=== PATIENT | male | born 1960 | race Caucasian/White ===

== ENCOUNTER → 2018-03-15 08:09 | Outpatient (CLI) | payer OTHER, SELFPAY ==
[2018-03-15 09:56] LABS: Add Manual Diff / Slide Review NO; Basophils Percent Auto 1.9 % (0-2); Eosinophils Percent Auto 3.2 % (2-4); Hematocrit 43.4 % (41-53); Hemoglobin 15.1 g/dL (13.5-17.5); Lymphocytes Percent Auto 30.5 % (25-40); Mean Corpuscular HGB Conc 34.8 % (30-36); Mean Corpuscular Hemoglobin 30.8 PG (26-34); Mean Corpuscular Volume 88.7 fL (80-100); Monocytes Percent Auto 9.2 % (3-14); Neutrophils Absolute Auto 2800 /uL (3000-5900); Neutrophils Percent Auto 55.2 % (50-75); Platelet Count 257 X10^3/uL (150-400); Red Blood Cell Count 4.89 X10^6/uL (4.5-5.9); Red Cell Distribution Width 12.6 % (11.6-14.8); White Blood Cell Count 5.1 X10^3/uL (4.5-11.0)
[2018-03-15 09:57] LABS: HEMOLYSIS < 15 (0-50)
[2018-03-15 10:11] LABS: Alanine Aminotransferase 43 IU/L (21-72); Albumin 4.4 g/dL (3.5-5.0); Albumin Globulin Ratio 1.4 (1.0-2.8); Alkaline Phosphatase 98 U/L (38-126); Aspartate Aminotransferase 26 IU/L (17-59); Bilirubin Total 0.8 mg/dL (0.2-1.3); Blood Urea Nitrogen 21 mg/dL (9-20); Calcium 9.2 mg/dL (8.4-10.2); Carbon Dioxide 30 mmol/L (22-32); Chloride 100 mmol/L (98-107); Cholesterol 201 mg/dL (140-199); Estimated Glomerular Filt Rate > 60.0 mL/min (>60); Globulin 3.1 g/dL (1.7-4.1); Glucose 98 mg/dL (70-100); HDL Cholesterol 52 mg/dL (40-60); LDL Cholesterol Calculated 128 mg/dL (<100); Potassium 4.2 mmol/L (3.4-5.1); Sodium 141 mmol/L (137-145); Total Protein 7.5 g/dL (6.3-8.2); Triglycerides 106 mg/dL (35-150)
[2018-03-15 10:34] LABS: TSH w/ Reflex to FT4 0.91 uIU/mL (0.47-4.68)
[2018-03-15 11:35] LABS: Prostate Specific Antigen Scrn 0.444 ng/mL (0.1-4.0)
== END ==
PROVIDERS: PCP Family Medicine; Visit Provider Family Medicine
DX: E78.2 Mixed hyperlipidemia (principal); I10 Essential (primary) hypertension
CPT/HCPCS: 36415; 80053; 80061; 84443; 85025; G0103

== ENCOUNTER 2019-01-08 08:31 | Day surgery (SDC) | payer OTHER, SELFPAY ==
[2019-01-08] VITALS (7 sets, daily range): BP systolic 104–135; BP diastolic 70–95; PULSE 66–86; RESP 11–16; TEMP 36.3–37.1; O2SAT 93–97; BMI 25.9
--- NOTE | 2019-01-08 | PATH_ITS ---
[facility] Accession Number: [id number] . 01 Material submitted: . body - POLYP AT 20 . 01 Clinical history: . ENCOUNTER FOR SCREENING FOR MALIGNANT NEOPLASM . 02 Diagnosis: Colon, Polyp At 20, Biopsy: Tubulovillous adenoma. No evidence of malignancy or high-grade dysplasia. [facility] 01/09/2019 1432 Local . 02 Electronically signed: . Kathryn Elena MD, Pathologist NPI- [id number] . 01 Gross description: . POLYP AT 20: Received in formalin is 1 fragment(s) of ayala, soft tissue measuring 0.6 x 0.5 x 0.5 cm which is bisected and submitted entirely in 1 cassette(s) /[facility] [place] 01/08/20192009 Local . 02 Pathologist provided ICD-10: D12.6 . 02 CPT . 783525 Performed at: 01 [facility] [address] [place] [address] [id number] MD Ayaz Woo MD Phone: [phone] Performed at: 02 [facility] [address] [place], [place] [id number] MD Kathryn Elena MD Phone: [phone]
--- NOTE | 2019-01-08 09:42 | PM.HP.1 ---
History of Present Illness History of Present Illness Date Patient Seen: 01/08/19 Time Patient Seen: 09:42 Chief complaint: [id number] Narrative: The patient is a gentleman here for screening colonoscopy. He has a personal history of colon cancer. Last exam was 5 years ago. Patient History Medical History Ankle pain (Chronic ~2009) Cataract (Chronic ~2013) Colon polyps (Chronic ~1995) Colorectal cancer (Chronic ~1995) Hearing loss (Chronic ~1985) Hyperlipidemia (Chronic ~2009) Hypertension (Chronic) Tinnitus (Chronic ~1984) Vision disorder (Chronic) Surgical History Anesthesia (Resolved) Status post colectomy (~1995) Family History Father CAD (coronary artery disease) High cholesterol Mother Mental health problem Grandfather CAD (coronary artery disease) Sister Age: 62 Mental health problem Grandfather No problems noted. Social History marital status: household members: spouse Smoking Status: Former smoker alcohol intake: never substance use type: does not use Family & Social History Family History Father CAD (coronary artery disease) High cholesterol Mother Mental health problem Grandfather CAD (coronary artery disease) Sister Age: 62 Mental health problem Grandfather No problems noted. Social History: household members spouse Tobacco & Substance use: Smoking Status Former smoker alcohol intake never Meds Home Medications and Allergies Home Medications Medication Instructions Recorded Confirmed Type MULTIVITAMIN W/IRON, MINERALS 1 ctb PO Q DAY #0 01/07/12 01/08/19 History (#NICOLAS COMPLETE) [flax seed ] 2,000 mg PO DAILY #0 12/15/15 01/08/19 History atorvastatin 20 mg tablet 30 mg PO HS #135 tab 03/17/18 01/08/19 Rx hydrochlorothiazide 25 mg tablet 25 mg PO QDAY #90 tab 03/17/18 01/08/19 Rx Allergies Allergy/AdvReac Type Severity Reaction Status Date / Time Iodinated Contrast- Oral and Allergy Mild HIVES Verified 05/27/18 08:42 IV Dye [IODINATED CONTRAST MEDIA - IV DYE] Review of Systems Review of Systems ROS Unobtainable: All systems reviewed & are unremarkable except as noted in HPI and below Exam Vital Signs (past 8 hours): - 01/08/19 09:17 Temperature 98.2 F Pulse Rate 86 Respiratory Rate 12 Blood Pressure 135/95 H Pulse Oximetry 97 Oxygen Delivery Method Room Air Narrative Exam Narrative: Pleasant cooperative patient no apparent distress. Lungs are clear to auscultation. No rales or rhonchi. Heart regular rate and rhythm no murmur gallop. Abdomen is soft nontender without mass. No obvious hernias. Patient is alert and oriented x3. Assessment & Plan Assessment & Plan narrative: The patient for a screening colonoscopy. I have discussed the procedure with them. Risks of bleeding, perforation which would necessitate major operation, failure to find remove all lesions, the potential tattoo were all discussed. All questions were answered. They wished to proceed.
--- NOTE | 2019-01-08 09:43 | PM.PREOP ---
Pre-operative Note Interval Note History & Physical reviewed/Exam performed by Physician: Yes Changes to H&P: No ASA Class (for procedural sedation): II
[2019-01-08] MEDS: SODIUM CHLORIDE 0.9% 1,000 ML 200 ML IV (09:49)
--- NOTE | 2019-01-08 10:25 | PM.OP.ENDO ---
Operative Date/Time/Diagnoses Date of procedure: 01/08/19 Time of procedure: 10:25 Pre-op diagnosis: Is history of colon cancer. Last scope 5 years ago. Post-op diagnosis: same ( polyp at 20 cm from the anal verge) Procedure & Clinicians Study performed: Colonoscopy with hot snare polypectomy Same procedure as scheduled: Yes Indications: Screening. Surveillance. Surgeon: Wade Finney Procedure Notes SCOAP/Timeout: Performed Procedure in detail: The patient was placed in the left lateral decubitus position and underwent IV sedation directed by the surgeon consisting of fentanyl and Versed. Digital exam was unremarkable. The scope was inserted and advanced through the rectum into the remaining descending, transverse, and ascending colon. The sigmoid appeared to be surgically absent. There was a fairly large polyp at 20 cm from the anal verge that I chose removed on the way out. However I could not identify an anastomosis. There was no area of stricture.. The cecum was reached identified by the ileocecal valve and the appendiceal opening. The ileocecal valve was successfully cannulated. The terminal ileum was normal in appearance. The scope was gradually brought out. One Polyp was found at 20 cm, the 1 seen going in. This was removed with a hot snare.. The scope ultimately was retroflexed in the rectum. The appearance was normal though on egress through the anus there appeared to be internal hemorrhoids just inside the anal verge. There were no ulcers on them.. The scope was removed and the patient tolerated the procedure well. Prep was very good. Scope withdrawal time: 8.5 minutes Sedation minutes: 18 Findings: internal hemorrhoids and polyp (At 20 cm from the anal verge.) Specimen(s): other (Polyps) Complications: none Post-procedure Recommendations: Colonscopy in 3 years (Due to personal history of colon cancer and the size of the polyp I removed.) Follow up: as needed Disposition: PACU
[2019-01-08] MEDS: fentaNYL 250 MCG/5 ML INJ IV (10:26)
[2019-01-08] MEDS: MIDAZOLAM 5 MG/5 ML VIAL IV (10:27)
== END 2019-01-08 11:15 | disposition home or self-care (01) ==
PROVIDERS: PCP Family Medicine; Visit Provider Specialist
PROC: 0DJD8ZZ Inspection of Lower Intestinal Tract, Via Natural or Artificial Opening Endoscopic (ICD-10-PCS; CPT 45378; principal; 2019-01-08 09:45)
DX: Z85.038 Personal history of other malignant neoplasm of large intestine (principal); K64.8 Other hemorrhoids; E78.5 Hyperlipidemia, unspecified; I10 Essential (primary) hypertension; D12.6 Benign neoplasm of colon, unspecified
CPT/HCPCS: 45385; 99152; J2250; J3010

== ENCOUNTER → 2019-03-14 08:05 | Outpatient (CLI) | payer OTHER, SELFPAY ==
[2019-03-14 09:16] LABS: Add Manual Diff / Slide Review NO; Basophils Absolute Auto 100 /uL (0-100); Eosinophils Absolute Auto 200 /uL (0-450); Eosinophils Percent Auto 3.6 % (2-4); Hematocrit 43.4 % (41-53); Hemoglobin 15.3 g/dL (13.5-17.5); Lymphocytes Absolute Auto 1700 /uL (1100-4500); Lymphocytes Percent Auto 30.8 % (25-40); Mean Corpuscular HGB Conc 35.2 % (30-36); Mean Corpuscular Hemoglobin 31.1 PG (26-34); Mean Corpuscular Volume 88.2 fL (80-100); Monocytes Absolute Auto 400 /uL (0-900); Monocytes Percent Auto 7.7 % (3-14); Neutrophils Absolute Auto 3200 /uL (1500-7000); Neutrophils Percent Auto 56.9 % (50-75); Platelet Count 255 X10^3/uL (150-400); Red Blood Cell Count 4.91 X10^6/uL (4.5-5.9); White Blood Cell Count 5.6 X10^3/uL (4.5-11.0)
[2019-03-14 09:27] LABS: Alanine Aminotransferase 31 IU/L (<50); Albumin 4.4 g/dL (3.5-5.0); Albumin Globulin Ratio 1.5 (1.0-2.8); Alkaline Phosphatase 104 U/L (38-126); Aspartate Aminotransferase 28 IU/L (17-59); Bilirubin Total 0.7 mg/dL (0.2-1.3); Blood Urea Nitrogen 16 mg/dL (9-20); Calcium 9.5 mg/dL (8.4-10.2); Carbon Dioxide 31 mmol/L (22-32); Chloride 103 mmol/L (98-107); Cholesterol 189 mg/dL (140-199); Estimated Glomerular Filt Rate > 60.0 mL/min (>60); Glucose 99 mg/dL (70-100); HDL Cholesterol 44 mg/dL (40-60); HEMOLYSIS < 15 (0-50); LDL Cholesterol Calculated 117 mg/dL (<100); Sodium 141 mmol/L (137-145); Total Protein 7.4 g/dL (6.3-8.2); Triglycerides 141 mg/dL (35-150)
[2019-03-14 10:21] LABS: TSH w/ Reflex to FT4 1.25 uIU/mL (0.47-4.68)
== END ==
PROVIDERS: PCP Family Medicine; Visit Provider Family Medicine
DX: E78.2 Mixed hyperlipidemia (principal); I10 Essential (primary) hypertension
CPT/HCPCS: 36415; 80053; 80061; 84443; 85025